=== PATIENT | female | born 1955 | race Caucasian/White ===

== ENCOUNTER → 2018-01-06 10:08 | Outpatient (CLI) | payer OTHER, SELFPAY ==
--- NOTE | 2018-01-06 | DI.RAD.S_ITS ---
PROCEDURE: XR CERVICAL SPINE 4V OR 5V INDICATIONS: Fell forward struck head fx T2-T4 TECHNIQUE: 5 views of the cervical spine were acquired. COMPARISON: None. FINDINGS: Bones: Straightening of cervical lordosis may be positional or related to muscle spasm. No fractures or dislocations to the C7 level. Slight anterolisthesis is present at C3-4. No suspicious bony lesions. There is normal range of motion between flexion and extension, with preserved bony alignment. 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 Disc spaces appear maintained. Soft tissues: Prevertebral soft tissues are normal in thickness. IMPRESSION: 1. Loss of lordosis otherwise no acute bony abnormality in the cervical spine. 2. Slight anterolisthesis C3-4. 3. Multilevel degenerative facet arthropathy. Dictated by: Owen Ortiz M.D. on 01/06/2018 at 11:13 Approved by: Owen Ortiz M.D. on 01/06/2018 at 11:18
== END ==
PROVIDERS: Visit Provider Chiropractor
DX: M43.12 Spondylolisthesis, cervical region (principal); M47.812 Spondylosis without myelopathy or radiculopathy, cervical region
CPT/HCPCS: 72050